=== PATIENT | female | born 1965 | race Caucasian/White ===

== ENCOUNTER 2017-06-13 12:50 | Emergency (ER) | payer BC ==
[~2017-06-13] VITALS: Ht 172.7 cm; Wt 140.0 kg
[2017-06-13 12:54] VITALS: BP 175/92; PULSE 77; RESP 16; TEMP 98; O2SAT 96
--- NOTE | 2017-06-13 13:06 | PD ---
HPI Chief Complaint: Eye Problems/Injury Time Seen by Provider: 13:06 Travel History International Travel<30 days: No Contact w/Intl Traveler<30days: No Traveled to known affect area: No History of Present Illness HPI 52-year-old female came to the emergency room sent by her regulatory affairs director for headache and dizziness has been going on for past 2 weeks and this morning when she woke up she noticed that her left pupil was larger than the right. Patient says that she has been trying to ignore her headache and dizziness but when this morning she noticed that her pupils were unequal she decided to go to her regulatory affairs director. He did a funduscopy exam and vision test. Everything was within normal limit. His concern was intracranial bleed or mass and hence sent the patient to the emergency room. Patient is awake and answering questions appropriately. Vital signs are stable. She looks anxious but otherwise no significant distress. No changes in her vision. She is still dizzy. Patient denies of any head trauma or trauma. [facility] Past Medical History Narrative Medical List of her past medical, surgical, social and family history is reviewed from the nursing note. Social History Tobacco Use: No Allergies-Medications (Allergen,Severity, Reaction): Coded Allergies: No Known Allergies (Unverified , 06/13/17) Comments No known drug allergies. Reported Meds & Prescriptions Reported Meds & Active Scripts Active Reported Wellbutrin Xl 24 HR (Bupropion HCl) 150 Mg Tab 150 Mg PO DAILY Pravastatin 40 Mg Tab 40 Mg PO DAILY Losartan (Losartan Potassium) 100 Mg Tab 100 Mg PO DAILY Levothyroxine (Levothyroxine Sodium) 137 Mcg Tab 137 Mcg PO DAILY Ipratropium Nasal 0.06% Aurora 1 Aurora EACH NARE QID Fluoxetine (Fluoxetine HCl) 10 Mg Tab 10 Mg PO DAILY Narrative Medication List of her past medical, surgical, social and family history is reviewed from the nursing note. Review of Systems Except as stated in HPI: all other systems reviewed are Neg Neurologic: Positive: Dizziness, Headache Physical Exam Narrative GENERAL: Awake, alert, obese, anxious, mild distress SKIN: Focused skin assessment warm/dry. HEAD: Atraumatic. Normocephalic. EYES: Pupils unequal and both reacting to light. No scleral icterus. No injection or drainage. ENT: No nasal bleeding or discharge. Mucous membranes pink and moist. NECK: Trachea midline. No JVD. CARDIOVASCULAR: Regular rate and rhythm. No murmur appreciated. RESPIRATORY: No accessory muscle use. Clear to auscultation. Breath sounds equal bilaterally. GASTROINTESTINAL: Abdomen soft, non-tender, nondistended. Hepatic and splenic margins not palpable. MUSCULOSKELETAL: No obvious deformities. No clubbing. No cyanosis. No edema. NEUROLOGICAL: Awake and alert. No obvious cranial nerve deficits. Motor grossly within normal limits. Normal speech. PSYCHIATRIC: Appropriate mood and affect; insight and judgment normal. Data Data Last Documented VS Vital Signs Date Time Temp Pulse Resp B/P (MAP) Pulse Ox O2 Delivery O2 Flow Rate FiO2 06/13/17 17:15 06/13/17 17:02 73 16 98 Room Air 06/13/17 12:54 98.0 Orders Orders Complete Blood Count With Diff (06/13/17 13:20) Basic Metabolic Panel (Bmp) (06/13/17 13:20) Ecg Monitoring (06/13/17 13:20) Iv Access Insert/Monitor (06/13/17 13:20) Oximetry (06/13/17 13:20) Sodium Chloride 0.9% Flush (Ns Flush) (06/13/17 13:30) Ct Brain W/O Iv Contrast(Rout) (06/13/17 ) Cta Brain W Iv Contrast W 3d (06/13/17 ) Cta Neck W Iv Contrast W 3d (06/13/17 ) Iohexol 350 Inj (Omnipaque 350 Inj) (06/13/17 14:57) Ed Discharge Order (06/13/17 17:07) Labs Laboratory Tests Test 06/13/17 13:30 White Blood Count 4.9 TH/MM3 Red Blood Count 4.60 MIL/MM3 Hemoglobin 13.2 GM/DL Hematocrit 40.0 % Mean Corpuscular Volume 87.1 FL Mean Corpuscular Hemoglobin 28.8 PG Mean Corpuscular Hemoglobin Concent 33.1 % Red Cell Distribution Width 13.0 % Platelet Count 278 TH/MM3 Mean Platelet Volume 7.3 FL Neutrophils (%) (Auto) 53.5 % Lymphocytes (%) (Auto) 35.7 % Monocytes (%) (Auto) 7.8 % Eosinophils (%) (Auto) 2.5 % Basophils (%) (Auto) 0.5 % Neutrophils # (Auto) 2.6 TH/MM3 Lymphocytes # (Auto) 1.8 TH/MM3 Monocytes # (Auto) 0.4 TH/MM3 Eosinophils # (Auto) 0.1 TH/MM3 Basophils # (Auto) 0.0 TH/MM3 CBC Comment DIFF FINAL Differential Comment Blood Urea Nitrogen 14 MG/DL Creatinine 0.73 MG/DL Random Glucose 91 MG/DL Calcium Level 8.9 MG/DL Sodium Level 139 MEQ/L Potassium Level 3.6 MEQ/L Chloride Level 105 MEQ/L Carbon Dioxide Level 28.5 MEQ/L Anion Gap 6 MEQ/L Estimat Glomerular Filtration Rate 84 ML/MIN MDM Medical Decision Making Medical Screen Exam Complete: Yes Emergency Medical Condition: Yes Medical Record Reviewed: Yes Differential Diagnosis Intracranial bleed, intracranial mass Narrative Course 2:06 PM blood test results of back and within acceptable limits. Awaiting for the CAT scan of her head to be done and resulted. 3:[address] head [address] is negative. Awaiting for the CTA of the head and neck. Procedures EKG Prior to Arrival: Najma Stapleton MD Jun 13, 2017 13:06
[2017-06-13] MEDS ORDERED: BUPR150XL PO (13:13)
[2017-06-13] MEDS ORDERED: LEVO137T2 PO (13:13)
[2017-06-13] MEDS ORDERED: PRAV40TA2 PO (13:13)
[2017-06-13] MEDS ORDERED: PRAV10TA PO (13:13)
[2017-06-13] MEDS ORDERED: FLUO10TA PO (13:13)
[2017-06-13] MEDS ORDERED: LOSA100T PO (13:13)
[2017-06-13] MEDS ORDERED: IPRA0.06 EACH NARE (13:13)
[2017-06-13] MEDS ORDERED: SODIUM CHLORIDE 0.9% FLUSH 10 ML FLUSH IVF PRN (13:30)
[2017-06-13 13:34] VITALS: O2SAT 97
[2017-06-13 13:40] LABS: AUTOMATED NEUTROPHIL # 2.6 TH/MM3 (1.8-7.7); BASOPHIL % 0.5 % (0.0-2.0); EOSINOPHIL # 0.1 TH/MM3 (0-0.4); EOSINOPHIL % 2.5 % (0.0-4.0); HEMOGLOBIN 13.2 GM/DL (11.6-15.3); LYMPH % 35.7 % (9.0-44.0); LYMPHOCYTE # 1.8 TH/MM3 (1.0-4.8); MEAN CELL VOLUME 87.1 FL (80.0-100.0); MEAN CORPUSCULAR HEMOGLOBIN 28.8 PG (27.0-34.0); MEAN CORPUSCULAR HGB CONC 33.1 % (32.0-36.0); MEAN PLATELET VOLUME 7.3 FL (7.0-11.0); MONO % 7.8 % (0.0-8.0); MONOCYTE # 0.4 TH/MM3 (0-0.9); NEUT % 53.5 % (16.0-70.0); PLATELET COUNT 278 TH/MM3 (150-450); WHITE BLOOD COUNT 4.9 TH/MM3 (4.0-11.0)
[2017-06-13 13:49] LABS: CALCIUM 8.9 MG/DL (8.5-10.1)
[2017-06-13 13:50] LABS: BICARBONATE 28.5 MEQ/L (21.0-32.0)
[2017-06-13 13:53] LABS: CREATININE 0.73 MG/DL (0.50-1.00)
[2017-06-13] MEDS ORDERED: IOHEXOL 350 MG/ML 10 ML VIAL (for RAD DIAG) IVCONTRAST ONE (14:57)
--- NOTE | 2017-06-13 15:00 | RADRPT ---
EXAM DATE/TIME: 06/13/2017 14:37 [facility] COMPARISON: No previous studies available for comparison. INDICATIONS : Cephalgia x 3 days. Left blown pupil today. RADIATION DOSE: 64.45 CTDIvol (mGy) MEDICAL HISTORY : None SURGICAL HISTORY : Thyroidectomy. Tubal ligation. ENCOUNTER: Initial ACUITY: 3 days PAIN SCALE: 6/10 LOCATION: cranial TECHNIQUE: Multiple contiguous axial images were obtained of the head. Using automated exposure control and adj ustment of the mA and/or kV according to patient size, radiation dose was kept as low as reasonably a chievable to obtain optimal diagnostic quality images. DICOM format image data is available electro nically for review and comparison. FINDINGS: CEREBRUM: The ventricles are normal for age. No evidence of midline shift, mass lesion, hemorrhage or acute in farction. No extra-axial fluid collections are seen. POSTERIOR FOSSA: The cerebellum and brainstem are intact. The 4th ventricle is midline. The cerebellopontine angle i s unremarkable. EXTRACRANIAL: The visualized portion of the orbits is intact. SKULL: The calvaria is intact. No evidence of skull fracture. CONCLUSION: Normal examination. Ramesh Jose MD on June 13, 2017 at 14:57 Board Certified Radiologist. This report was verified electronically.
--- NOTE | 2017-06-13 16:25 | RADRPT ---
EXAM DATE/TIME: 06/13/2017 14:37 [facility] COMPARISON: No previous studies available for comparison. INDICATIONS : Cephalgia x 3 days. Left blown pupil today. IV CONTRAST: 95 cc Omnipaque 350 (iohexol) IV ; Cumulative dose for multiple exams. RADIATION DOSE: 42.25 CTDIvol (mGy) ; Combined studies MEDICAL HISTORY : None SURGICAL HISTORY : Tubal ligation. Thyroidectomy. ENCOUNTER: Initial ACUITY: 3 days PAIN SCALE: 6/10 LOCATION: cranial TECHNIQUE: Volumetric scanning was performed using a multi-row detector CT scanner. The data was post processed with a variety of visualization algorithms including full volume maximum intensity projection, multi -planar sliding thin slab reformation, curved planar reformation, and surface rendering techniques. Using automated exposure control and adjustment of the mA and/or kV according to patient size, radiat ion dose was kept as low as reasonably achievable to obtain optimal diagnostic quality images. DICO M format image data is available electronically for review and comparison. FINDINGS: There is excellent visualization of the major intracranial arteries out to the second-order branch ve ssels. There is no evidence for aneurysm, vessel truncation or stenosis, and no evidence for vascula r malformation. CONCLUSION: Normal examination. Ramesh Jose MD on June 13, 2017 at 16:21 Board Certified Radiologist. This report was verified electronically.
--- NOTE | 2017-06-13 16:46 | RADRPT ---
EXAM DATE/TIME: 06/13/2017 14:37 [facility] COMPARISON: No previous studies available for comparison. INDICATIONS : Cephalgia x 3 days. Left blown pupil today. IV CONTRAST: 95 cc Omnipaque 350 (iohexol) IV ; Cumulative dose for multiple exams. RADIATION DOSE: 42.25 CTDIvol (mGy) ; Combined studies MEDICAL HISTORY : None SURGICAL HISTORY : Tubal ligation. Thyroidectomy. ENCOUNTER: Initial ACUITY: 3 days PAIN SCALE: 6/10 LOCATION: neck Elevated flow velocities and ICA/CCA ratios have been found to correlate with increased degrees of vessel stenosis, calculated as percentage of diameter relative to a normal segment of distal ICA/CCA. TECHNIQUE: Volumetric scanning was performed using a multirow detector CT scanner. The data was post processed with a variety of visualization algorithms including full-volume maximum intensity projection, multip lanar sliding thin-slab reformation, curved-planar reformation, and surface-rendering techniques. Us ing automated exposure control and adjustment of the mA and/or kV according to patient size, radiatio n dose was kept as low as reasonably achievable to obtain optimal diagnostic quality images. DICOM f ormat image data is available electronically for review and comparison. FINDINGS: AORTIC ARCH: There is a three-vessel origin of the great vessels from the aorta. No evidence of ostial narrowing. RIGHT CAROTID: The common carotid artery is intact. The carotid bulb has a normal configuration without ulceration o r narrowing. The internal carotid artery lumen is smooth without stenosis. The external carotid fredi ry is intact. LEFT CAROTID: The common carotid artery is intact. The carotid bulb has a normal configuration without ulceration or narrowing. Eccentric calcified plaque in the proximal internal carotid artery with resultant less than 10% stenosis. Internal carotid artery is otherwise patent. The external carotid artery is intact . VERTEBRALS: The vertebral arteries have a symmetric diameter. No stenotic lesions are seen. NONVASCULAR FINDINGS: Post surgical features of prior thyroidectomy. There is likely residual thyroid tissue measuring 1.2 x 1.0 cm in the right thyroid bed. Visualized lung apices are clear. No significant necrotic cervical adenopathy. CONCLUSION: 1. No significant carotid flow-limiting stenosis. 2. Patent bilateral vertebral arteries. 3. Post surgical features of prior thyroidectomy with likely residual thyroid tissue measuring 1.2 x 1.0 cm in the right thyroid bed. Clinical correlation is recommended. Gerber Melendez MD on June 13, 2017 at 16:37 Board Certified Radiologist. This report was verified electronically.
[2017-06-13 17:02] VITALS: BP 173/93; PULSE 73; RESP 16; O2SAT 98
--- NOTE | 2017-06-13 17:07 | PD ---
Physical Exam Narrative Patient signed out to me by Dr. Garcia. Please see her documentation for complete details. Briefly, patient is a 52 year old female who comes in because she noticed her left pupil was larger than her right. She saw her dancing instructor, who checked her eyes and said that everything looked fine, but she should come in for a CAT scan of her head. She says she has been having occasional headaches and dizziness, but currently is not experiencing any pain. Exam shows pupils to be equal and reactive. She has no focal neurologic abnormalities. Data Data Last Documented VS Vital Signs Date Time Temp Pulse Resp B/P (MAP) Pulse Ox O2 Delivery O2 Flow Rate FiO2 06/13/17 17:02 73 16 173/93 (119) 98 Room Air 06/13/17 12:54 98.0 Orders Orders Complete Blood Count With Diff (06/13/17 13:20) Basic Metabolic Panel (Bmp) (06/13/17 13:20) Ecg Monitoring (06/13/17 13:20) Iv Access Insert/Monitor (06/13/17 13:20) Oximetry (06/13/17 13:20) Sodium Chloride 0.9% Flush (Ns Flush) (06/13/17 13:30) Ct Brain W/O Iv Contrast(Rout) (06/13/17 ) Cta Brain W Iv Contrast W 3d (06/13/17 ) Cta Neck W Iv Contrast W 3d (06/13/17 ) Iohexol 350 Inj (Omnipaque 350 Inj) (06/13/17 14:57) Labs Laboratory Tests Test 06/13/17 13:30 White Blood Count 4.9 TH/MM3 Red Blood Count 4.60 MIL/MM3 Hemoglobin 13.2 GM/DL Hematocrit 40.0 % Mean Corpuscular Volume 87.1 FL Mean Corpuscular Hemoglobin 28.8 PG Mean Corpuscular Hemoglobin Concent 33.1 % Red Cell Distribution Width 13.0 % Platelet Count 278 TH/MM3 Mean Platelet Volume 7.3 FL Neutrophils (%) (Auto) 53.5 % Lymphocytes (%) (Auto) 35.7 % Monocytes (%) (Auto) 7.8 % Eosinophils (%) (Auto) 2.5 % Basophils (%) (Auto) 0.5 % Neutrophils # (Auto) 2.6 TH/MM3 Lymphocytes # (Auto) 1.8 TH/MM3 Monocytes # (Auto) 0.4 TH/MM3 Eosinophils # (Auto) 0.1 TH/MM3 Basophils # (Auto) 0.0 TH/MM3 CBC Comment DIFF FINAL Differential Comment Blood Urea Nitrogen 14 MG/DL Creatinine 0.73 MG/DL Random Glucose 91 MG/DL Calcium Level 8.9 MG/DL Sodium Level 139 MEQ/L Potassium Level 3.6 MEQ/L Chloride Level 105 MEQ/L Carbon Dioxide Level 28.5 MEQ/L Anion Gap 6 MEQ/L Estimat Glomerular Filtration Rate 84 ML/MIN MDM Supervised Visit with CORNELIO: No Narrative Course CTA of the head and neck show no acute abnormalities. Labs sent show no acute abnormalities. Patient informed of the results. She is reassured. She will follow-up with her dancing instructor. Given the name of the neurologist to follow -up with him as well. Advised to return anytime for any worsening symptoms. Diagnosis Primary Impression: Anisocoria Referrals: Glenn Toure MD PhD call for appointment Patient Instructions: General Headache (ED), General Instructions Additional Instruction: Follow-up with your dancing instructor. Follow-up with neurology as needed. Return to the ED as needed for any worsening symptoms. Disposition: 01 DISCHARGE HOME Condition: Stable Talita Melara MD Jun 13, 2017 17:07
== END 2017-06-13 17:17 | disposition home or self-care (01) ==
LOC: PHED 12:50
DX: H57.02 Anisocoria (principal); Z98.890 Other specified postprocedural states; Z79.899 Other long term (current) drug therapy
CPT/HCPCS: 70450; 70496; 70498; 80048; 85025; 99284; Q9967